=== PATIENT | male | born 1955 | race Caucasian/White ===

== ENCOUNTER 2024-02-10 05:53 | Day surgery (SDC) | payer MEDICARE, OTHER, SELFPAY ==
[2024-01-25 09:42] VITALS: BMI 26.9
[2024-02-10] VITALS (13 sets, daily range): BP systolic 128–190; BP diastolic 87–126
[2024-02-10] MEDS: TYLENOL 1000 MG PO (07:10)
[2024-02-10 08:43] LABS: ACT-LR - POC 284 Seconds (116-155)
--- NOTE | 2024-02-10 09:02 | ITS.CL.ABL ---
[employer] - Ablation
Ablation
Procedure Report:
ELECTROPHYSIOLOGY ABLATION STUDY
DATE:: February 10, 2024 REFERRING: Dr. Navid Reina
INDICATION: Paroxysmal supraventricular tachycardia in the form of atrial fibrillation. Refractory to amiodarone
HISTORY: See H and P. As above
ANTIARRHYTHMIC DRUG: Amiodarone
PRE-PROCEDURE TK: No atrial thrombus
PRESENTING RHYTHM: Sinus bradycardia
'TIME-OUT': called and confirmed.
SEDATION/ANESTHESIA: provided via the anesthesia department using general anesthesia (LMA).
INTRAVENOUS/ARTERIAL ACCESS:
Right femoral venous - 8Fr
Left femoral venous - 8 Fr, 6 Fr
Lzzcme-pc-mufby suture to each femoral vein
Ultrasound guidance for bilateral femoral vein access was utilized by me to obtain access with demonstration of normal anatomy
CHADS-VASC Score:
HAS-Bled Score
PROCEDURE:
1. A decapolar CS catheter was placed within the CS for mapping and pacing. This was also used as the reference catheter for the 3-D map.
2. The intracardiac ultrasound catheter was positioned in the RA to identify the FO for targeting of transseptal puncture, assist in identification of the pulmonary vein ostia, monitoring pre and post ablation pulmonary vein flow velocities,
monitoring for 'bubble' formation during RF application as a sign of thermal injury, and to monitor for pericardial effusion during mapping and ablation procedure. Left atrial size, LV ejection fraction, and pulmonary vein flows were monitored
pre and post ablation procedure. The other valves were inspected and found to be free of significant regurgitation or stenosis.
3. Half of the calculated heparin bolus was administered prior to the first transeptal puncture. Transseptal puncture was performed to diagnose RA and LA pressure so that safety of LA mapping and ablation could be further assessed, and to access
the left atrium and pulmonary veins for mapping and ablation. This entailed advancing an 16 [place] sheath dilator and RF wire apparatus into the superior vena cava and withdrawing both (monitoring intracardiac ultrasound, fluoroscopy and tip
pressure) with the tip oriented toward the atrial septum. The fossa ovalis was engaged (indicated by sudden displacement of the sheath tip as well as tenting of the fossa seen on intracardiac ultrasound). Left atrial access required a pass with
the [place] needle extended. Left atrial catheter position was confirmed by pressure monitoring (RA mean pressure 8 mm Hg and LA mean presure 14 mm Hg), LA saturation ( 99 %), as well as fluoroscopy. The sheath was advanced over the dilator
and positioned in the left atrium. The remainder of the calculated heparin bolus was administered and heparin was
infused to maintain ACT at 300 -350 seconds throughout the case.
4. RA pacing was performed via the proximal decapolar poles and LA pacing was performed via the distal decapolr poles.
5. A quadrapolar catheter was first positioned at the His position for His Bundle recording which was tagged via the 3-D Navex sytem, and then passed to the RVA for RV pacing and recording.
6. The ablation catheter was positioned through one of the transeptal seaths and a 20 pole ring mapping catheter was positioned through the second seath into the LA and then the ostia of the LIPV, LSPV, RSPV and the RIPV.
7. Next, a 3-D map was created using Navex. A 3-D reconstructed CT image was compared to the 3-D Navex map to assist in anatomic interpretation, mapping and ablation. The CT image and the NavX image were fused.
8. [place] and basket pose were given to each of the 4 pulmonary veins and flower post to the antrum of the pulmonary veins and posterior wall leading to entrance and exit block in all 4 pulmonary veins plus the posterior wall from roof to 1 cm below
the the inferior veins on the floor. A total of 48 lesions were given. Glycopyrrolate 0.2 mg was given.
9. Normal sinus node and AV aicha Wenckebach at 480 ms with hiss recording demonstrating normal HV interval.
TOTAL FLOURO TIME: 9.7 minutes
TOTAL RF DURATION: 0 minutes
REVERSAL OF HEPARIN: 35 mg of protamine, slow IV administration
COMPLICATIONS:
None
Intracardiac US shows no pericardial effusion post ablation.
SUMMARY:
Complex left atrial mapping and ablation.
Isolation of all 4 pulmonary veins and the posterior wall as above
RECOMMENDATIONS:
1. Admit to monitored bed.
2. Resume anticoagulation
3. Out of bed 4 hours
4. Stop amiodarone
Copy to: Dr. Sami Reina, Dr. Lukas anton
[2024-02-10] MEDS: SUBLIMAZE 50 MCG IV (09:36)
[2024-02-10] MEDS: TORADOL 30 MG IV (10:08)
[2024-02-10] MEDS: MAALOX 30 ML PO (10:46)
--- NOTE | 2024-02-10 13:52 | W.PN.UPDATE ---
Addendum entered and electronically signed by JAZ Valenzuela 02/10/24 15:49:
Pt got oob to go to bathroom, was bearing down to urinate, right groin site bled. He was helped back to bed, manual compression held, and remained on bedrest for 45 minutes. Now OOB ambulating without groin issues, no further bleeding or HT. He was
instructed to not bear down with urination and to hold pressure to groins when urinating. Otherwise stable, and Dr. Cooper aware of above.
Home today.
Original Note:
Update Note
Progress Note Update
Pt seen post PFA. Bilat groin sites with dressing CDI, no ht/bleeding. OOB ambulating, urinating without difficulty. Initially post op complained of left sided chest discomfort, not responsive to fentanyl, but modest relief with IV toradol. Resume
eliquis tonight. Will discontinue amiodarone at this time. Followup with Dr. Garner as scheduled. Home today if groin site/tele remain stable.
== END 2024-02-10 15:30 | disposition home or self-care (01) ==
LOC: CATH 05:53
PROVIDERS: ATTENDING PHYSICIAN Internal Medicine Cardiovascular Disease; OTHER PHYSICIAN Internal Medicine Cardiovascular Disease
DX: I48.0 Paroxysmal atrial fibrillation (principal); I47.19 Other supraventricular tachycardia; R53.83 Other fatigue; R07.9 Chest pain, unspecified; I10 Essential (primary) hypertension; E78.5 Hyperlipidemia, unspecified; K21.9 Gastro-esophageal reflux disease without esophagitis; I45.10 Unspecified right bundle-branch block; Z87.891 Personal history of nicotine dependence; Z79.01 Long term (current) use of anticoagulants
CPT/HCPCS: C1732; C1894; C1730; C1769; C1892; 85347; 86900; 86901; 93005; 93656; 93657; C1733; C1766